=== PATIENT | female | born 1965 | race Caucasian/White ===

== ENCOUNTER → 2021-02-18 | Outpatient (CLI) | payer BC | LOC: KOH-I 08:34 | DX: S80.02XA Contusion of left knee, initial encounter (principal) | CPT/HCPCS: 73562 ==

== ENCOUNTER → 2021-05-24 | Outpatient (CLI) | payer BC | LOC: KOH-I 05-20 11:00 | DX: R79.89 Other specified abnormal findings of blood chemistry (principal); K76.0 Fatty (change of) liver, not elsewhere classified | CPT/HCPCS: 76705 ==